=== PATIENT | male | born 1975 ===

== ENCOUNTER 2018-05-08 10:47 | Emergency (ER) | payer OTHER ==
[2018-05-08 11:05] VITALS: BP 149/94; PULSE 93; RESP 20; TEMP 99.1; O2SAT 95
--- NOTE | 2018-05-08 12:47 | C.PDOC ---
History Of Present Illness 42 year old male presents to the ED for evaluation of right ankle pain which began around 5 days ago. Patient states he was playing outside with his son, when he accidentally tripped and fell and injured his right posterior ankle. Patient has been able to walk. Today, patient noted a lump to his lower calf area and presents to the ED for further evaluation. He denies chest pain, shortness of breath, nausea, vomiting. Time Seen by Provider: 05/08/18 11:15 Chief Complaint (Nursing): Lower Extremity Problem/Injury History Per: Patient History/Exam Limitations: no limitations Onset/Duration Of Symptoms: Hrs Current Symptoms Are (Timing): Still Present Additional History Per: Patient Past Medical History Reviewed: Historical Data, Nursing Documentation, Vital Signs Vital Signs: Last Vital Signs Temp 99.1 F 05/08/18 10:56 Pulse 93 H 05/08/18 10:56 Resp 20 05/08/18 10:56 BP 149/94 H 05/08/18 10:56 Pulse Ox 95 05/08/18 10:56 - Medical History PMH: No Chronic Diseases Surgical History: No Surg Hx Family History: States: Unknown Family Hx - Social History Hx Alcohol Use: Yes Hx Substance Use: No - Immunization History Hx Tetanus Toxoid Vaccination: No Hx Influenza Vaccination: No Hx Pneumococcal Vaccination: No Review Of Systems Cardiovascular: Negative for: Chest Pain Respiratory: Negative for: Shortness of Breath Musculoskeletal: Positive for: Other (right posterior ankle injury ) Physical Exam - Physical Exam Appears: Non-toxic, No Acute Distress Skin: Normal Color, Warm, Dry Head: Atraumatic, Normacephalic Eye(s): bilateral: Normal Inspection Oral Mucosa: Moist Neck: Supple Extremity: Normal ROM (right ankle, dorsiflexion and plantar flexion intact ), No Tenderness (to right medial or lateral malleolus ), No Calf Tenderness, Capillary Refill (less than 2 seconds ), Swelling (to right achilles tendon, well-circumscribed swelling to right distal posterior calf ), No Other (ecchymosis, increased warmth or ecchymosis. Negative nixon's test ) Pulses: Left Dorsalis Pedis: Normal, Right Dorsalis Pedis: Normal Neurological/Psych: Oriented x3, Normal Speech, Normal Cognition ED Course And Treatment O2 Sat by Pulse Oximetry: 95 (on RA) Pulse Ox Interpretation: Normal - Other Rad right ankle XR X-Ray: Viewed By Me Interpretation: Date of service: 05/08/2018. PROCEDURE: Right Ankle Radiographs. HISTORY: injury. COMPARISON: No prior. FINDINGS: BONES: No evidence of acute displaced fracture nor dislocation. JOINTS: Normal. No osteoarthritis. Ankle mortise maintained. Talar dome intact. SOFT TISSUES: There is marked elliptical shaped thickening -enlargement of the Achilles tendon which suggest Achilles injury such as a partial with hematoma. Clinical correlation physical exam recommended. Recommend follow-up MRI for further evaluation. OTHER FINDINGS: None. IMPRESSION: No evidence of acute displaced fracture nor dislocation. Marked elliptical shaped enlargement/thickening of the Achilles tendon; findings suggest Achilles injury such as a partial tear of with hematoma formation.. Recommend follow-up MRI for further evaluation and clinical correlation with physical exam. These findings discussed with the emergency room JAYSON Trent at approximately 12:45 p.m. with written down and read back verification. Medical Decision Making Medical Decision Making: Progress: Right ankle XR and Venous duplex scan right lower extremity ordered. Venous duplex scan results are unremarkable. Ankle XR w/possible achilles tendon tear. Results d/w patient. Posterior short leg splint applied by EMT. Patient provided w/crutches w/training. He is stable for d/c home. He is to f/u w/the clinic and ortho and RTED for new, worsening or concerning symptoms. He verbalized understanding of his d'/c instructions and was given the opportunity to ask questions. Disposition Counseled Patient/Family Regarding: Studies Performed, Diagnosis, Need For Followup - Disposition Referrals: [facility] [Outside] [facility] [Outside] Disposition: HOME/ ROUTINE Disposition Time: 14:16 Condition: GOOD Additional Instructions: NIKKI ELIZABETH, thank you for letting us take care of you today. Your provider was Rosalinda Trent MD and you were treated for LEG PAIN. The emergency medical care you received today was directed at your acute symptoms. If you were prescribed any medication, please fill it and take as directed. It may take several days for your symptoms to resolve. Return to the Emergency Department if your symptoms worsen, do not improve, or if you have any other problems. Please call one of the physicians/clinics you have been referred to that are listed on the Patient Visit Information form that is included in your discharge packet. Bring any paperwork you were given at discharge with you along with any medications you are taking to your follow up visit. Our treatment cannot replace ongoing medical care by a primary care provider outside of the emergency department. Thank you for allowing the [facility] team to be part of your care today. If you had an X-Ray or CT scan: A Radiologist will review the ED reading if any change in treatment is needed we will contact you. If you had a blood, urine, or wound culture: It will take several days for the results, if any change in treatment is needed we will contact you. If you had an STI test: It will take 48 hours for the results. Please call after 1 week if you have not heard back. Prescriptions: Ibuprofen [Motrin Tab] 800 mg PO TID PRN #30 tab PRN Reason: Pain, Moderate (4-7) Instructions: Achilles Tendinopathy (DC) Forms: [employer] (Belarusian), General Discharge Instructions Print Language: NEPALESE - POA Present On Arrival: None - Clinical Impression Clinical Impression: Achilles tendon injury - Scribe Statement The provider has reviewed the documentation as recorded by the Scribe (Alexandra Castaneda) Provider Attestation: All medical record entries made by the Scribe were at my direction and personally dictated by me. I have reviewed the chart and agree that the record accurately reflects my personal performance of the history, physical exam, medical decision making, and the department course for this patient. I have also personally directed, reviewed, and agree with the discharge instructions and disposition.
--- NOTE | 2018-05-08 12:52 | RAD ---
Date of service: 05/08/2018 PROCEDURE: Right Ankle Radiographs. HISTORY: injury COMPARISON: No prior FINDINGS: BONES: No evidence of acute displaced fracture nor dislocation. JOINTS: Normal. No osteoarthritis. Ankle mortise maintained. Talar dome intact SOFT TISSUES: There is marked elliptical shaped thickening -enlargement of the Achilles tendon which suggest Achilles injury such as a partial with hematoma. Clinical correlation physical exam recommended. Recommend follow-up MRI for further evaluation. OTHER FINDINGS: None. IMPRESSION: No evidence of acute displaced fracture nor dislocation. Marked elliptical shaped enlargement/thickening of the Achilles tendon; findings suggest Achilles injury such as a partial tear of with hematoma formation.. Recommend follow-up MRI for further evaluation and clinical correlation with physical exam These findings discussed with the emergency room JAYSON Trent at approximately 12:45 p.m. with written down and read back verification.
--- NOTE | 2018-05-11 09:52 | VASCLAB ---
Date of service: 05/08/2018 PROCEDURE: Right Lower Extremity Venous Duplex Exam. HISTORY: swelling/injury PRIORS: None. TECHNIQUE: Right common femoral, femoral, popliteal and posterior tibial, peroneal and great saphenous veins were evaluated. Flow was assessed with color Doppler, compressibility, assessment of phasic flow and augmentation response. Report prepared by LULU Weathers FINDINGS: RIGHT: 1. Common Femoral Vein: 1.1. Compressibility - Fully compressible: Thrombus - None: Flow - Phasic: Augmentation -Normal: Reflux - None. 2. Femoral Vein: 2.1. Compressibility - Fully compressible: Thrombus - None: Flow - Phasic: Augmentation -Normal: Reflux - None. 3. Popliteal Vein: 3.1. Compressibility - Fully compressible: Thrombus - None: Flow - Phasic: Augmentation -Normal: Reflux - None. 4. Posterior Tibial Vein: 4.1. Compressibility - Fully compressible: Thrombus - None: Flow - Phasic: Augmentation -Normal: Reflux - None. 5. Peroneal Vein: 5.1. Compressibility - Fully compressible: Thrombus - None: Flow - Phasic: Augmentation -Normal: Reflux - None. 6. Great Saphenous Vein: 6.1. Compressibility - Fully compressible: Thrombus -None: Flow - Phasic: Augmentation - Normal: Reflux - None. OTHER FINDINGS: IMPRESSION: No evidence of deep or superficial vein thrombosis of the right lower extremity with excellent venous flow. Normal valve function noted of the right side. Normal venous flow noted in the left common femoral vein.
== END 2018-05-08 14:25 | disposition home or self-care (01) ==
LOC: MERGE 10:47 → C.ER 10:47
DX: S86.001A Unspecified injury of right Achilles tendon, initial encounter (principal); W01.0XXA Fall on same level from slipping, tripping and stumbling without subsequent striking against object, initial encounter; Y92.89 Other specified places as the place of occurrence of the external cause

== ENCOUNTER 2018-05-19 16:00 | Outpatient (CLI) | payer OTHER | END 2018-05-19 16:01 | disposition home or self-care (01) | LOC: C.MRIC 16:00 | DX: S86.001A Unspecified injury of right Achilles tendon, initial encounter (principal) ==

== ENCOUNTER 2018-06-01 07:54 | Day surgery (SDC) | payer OTHER ==
[2018-05-29 15:16] VITALS: BMI 27.0
[2018-06-01] MEDS ORDERED: Midazolam 2 MG/2 ML VIAL ONE (10:02)
[2018-06-01] MEDS ORDERED: Propofol 10 mg/ml Inj (20 ML) ONE (10:03)
[2018-06-01] MEDS ORDERED: Lidocaine Hydrochloride 10 ML INJ ONE (10:03)
[2018-06-01] MEDS ORDERED: ceFAZolin 1 gm in NS 1 GM/100 ML BAG IVPB ONE (10:03)
[2018-06-01] MEDS ORDERED: Bupivacaine 0.25% 20 ML INJ IJ ONE ×2 (10:03→10:05)
[2018-06-01] MEDS ORDERED: ceFAZolin 1 gm in NS 2 GM/200 ML BAG IVPB ONE (10:05)
[2018-06-01] MEDS ORDERED: Lidocaine Hydrochloride 0 ML INJ ONE (10:06)
[2018-06-01] MEDS ORDERED: Rocuronium 10 mg/ml (5 ml) ONE (10:38)
[2018-06-01] MEDS ORDERED: Lidocaine Hydrochloride 5 ML INJ ONE (10:38)
[2018-06-01] MEDS ORDERED: Neostigmine 1:1000 (1 mg/ml) Inj ONE (12:46)
--- NOTE | 2018-06-01 13:16 | PCM.SURG1 ---
Surgeon's Initial Post Op Note - Surgeon's Notes Surgeon: Dr. Carmella Montanez [place] Cleaner: Nancy Brothers PGY-2, Frantz Waller PGY-2, Alex Castaneda PGY-2 Type of Anesthesia: General Endo, Block Regional Anesthesia Administered By: Amy IGLLILAND/Hussain AVELAR Pre-Operative Diagnosis: 1) right Achilles tendon rupture. 2) right lower extremity ankle equinus deformity Operative Findings: I: none. M: #0 Fiberwire, #2 Fiberwire, Arthroflex graft, 2-0 Vicryl, 3-0 Vicryl, 3-0 Prolene, xeroform, ABD, DSD, gravity splint Post-Operative Diagnosis: same Operation Performed: 1) right Achilles tendon repair. 2) right open gastrocnemius recession Specimen/Specimens Removed: Achilles tendon right Estimated Blood Loss: EBL {In ML}: 40 Blood Products Given: N/A Drains Used: No Drains Post-Op Condition: Good Date of Surgery/Procedure: 06/01/18 Time of Surgery/Procedure: 13:16
[2018-06-01] MEDS ORDERED: Oxycodone/Acetaminophen 5/325 mg Tab PO PRN ×2 (13:17)
[2018-06-01] MEDS ORDERED: Lactated Ringer's 1,000 ML IV ONE (13:18)
[2018-06-01] MEDS: HYDROmorphone 0.5 mg/0.5 ml ISec IVP PRN ×3 (13:29→13:50)
[2018-06-01] MEDS ORDERED: Ropivacaine 0.5% PF (20 ml) inj INJ ONE (13:37)
--- NOTE | 2018-06-01 13:52 | PCM.ANESB2 ---
Popliteal Nerve Block - Popliteal Nerve Block Date of Procedure: 06/01/18 Anesthesiologist: connie Procedure Performed: Popliteal Nerve Block Right - Procedure Popliteal Nerve Block: This procedure was explained to the patient that it is for post-operative pain management. Consent was obtained after a thorough discussion with the patient regarding the benefits and possible complications of local anesthetic block of the sciatic nerve at the popliteal level. The patient was brought to the operating room and standard monitors are applied. Time-out was held with the circulating nurse to confirm the correct surgery and the appropriate block. After applying oxygen by nasal cannula and administering IV Sedation, patient's operative leg was gently raised and supported and the groove in between the biceps femoris and vastus lateralis muscles was carefully palpated. The skin approximately 8cm above the popliteal crease was then marked. The ultrasound transducer was then applied to the posterior thigh approximately 8cm above the popliteal crease in the transverse plane and the sciatic nerve before its division was visualized lateral to the popliteal artery and in between the bicep femoris and semimembranosus/semitendinosus muscles. After identification, the lateral portion of the thigh was prepped with Betadine solution three times and Lidocaine 1% was injected subcutaneously for topical anesthesia. At this point, a # 21 gauge Stimuplex insulated 4 inch needle was inserted into pre-marked area and advanced in a perpendicular direction. The needle was inserted above the ultrasound transducer in-plane towards the sciatic nerve in a [id number] direction. Needle advancement was performed carefully under direct ultrasound visualization. After repeated negative aspiration, __5___cc of ___.5__ % ropivicaine was injected and this was flowed with ___15___ cc of __.5____% ___ropiviciane . Under ultrasound guidance the local anesthetics were observed surrounding sciatic nerve . The needle was removed intact and sterile dressing was applied. The patient tolerated the popliteal nerve block well with stable vital signs and was subsequently prepared for the surgery.
[2018-06-01 16:02] VITALS: O2SAT 99
[2018-06-01 18:46] VITALS: PULSE 95; RESP 20
[2018-06-01 21:44] VITALS: BP 132/81; TEMP 99.2
--- NOTE | 2018-06-01 23:16 | PCM.OP ---
Operative Report - Operative Report Date of Surgery/Procedure: 06/01/18 Time of Surgery/Procedure: 23:16 Surgeon: Dr. Carmella Montanez DPM Claim Taker: Nancy Brothers PGY-2, Frantz Waller PGY-2, Alex Castaneda PGY-2 Anesthesia/Sedation: General endotracheal anesthesia with regional (popliteal) nerve block to left lower extremity Amy GILLILAND/Dr. Jerome AVELAR Pre-Operative Diagnosis: 1) right Achilles tendon rupture 2) right ankle equinus deformity Post-Operative Diagnosis: same Indication for Surgery: The patient is a 42 year-old male with the above-mentioned diagnosis. The patient has exhausted conservative treatment at this time and now requires surgical intervention. The patient was consented after careful explanation of risks, benefits, complications and alternatives for the surgical procedure. No guarantees were given nor implied. NPO status was confirmed prior to taking the patient into the operating room. Operative Findings: Preparation: The patient was brought into the operating room and placed on the operating room table in the supine position. A time-out was preformed for identification of the correct patient and procedure. After induction of general endotracheal anesthesia, the patient was then carefully flipped into a prone position with padded support provided on the operating room table. An pneumatic thigh tourniquet was applied to the patient's right thigh in the suprapatellar position. The right lower extremity was prepped and draped in a the normal sterile manner and the procedure began. Procedure/Operation Description: Procedure #1: Debridement of Achilles tendon with end-to-end tendon repair Attention was directed to the distal portion of the Achilles tendon of the right lower extremity. A palpable dell was noted in the tendon approximately 7-8cm proximal to the tendon insertion. Using a sterile #15 blade, an approximately 15 cm linear longitudinal incision was made overlying the posterior Achilles tendon involving the palpable dell noted in the body of the tendon. The incision was carried down through subcutaneous tissue using sharp and blunt dissection. Care was taken to retract all vital neurovascular structures. A linear incision was then made through the paratenon. Using sterile forceps and tenotomy scissors, the paratenon was carefully from the body of the tendon, keeping it intact along the entirety of the incision length. At this time, a defect was noted in the body of the Achilles tendon, approximately 9cm proximal to the calcaneal insertion. Tendon ends at this level were noted to be inflamed and frayed. Approximately a 3.5cm length portion of the tendon was resected at this time from the intrasubstance of the Achilles tendon as it was noted to lack tendinous striations and exhibit scar tissue and fibrous adhesions. The plantaris tendon was noted to be healthy in appearance and was preserved to aid in tendon repair. It is at this time that it was deemed necessary to perform a gastrocnemius recession to obtain adequate length. Procedure #2: Open gastrocnemius recession At this time, the surgical incision was lengthened an additional 12 cm proximally to allow access to the gastrocnemius aponeurosis. At this time, the gastrocnemius aponeurosis was from the underlying soleal muscle belly. Using a sterile 15 blade, the gastrocnemius aponeurosis was incised in a transverse linear fashion. At this time, a malleable retractor was then used to lengthen the Achilles tendon to allow for end-to-end tendon repair under decreased tension. The gastrocnemius recession was noted to allow tendon ends to reapproximate under low tension. Attention was then re-directed to the proximal portion of the incision to the site of the Achilles tendon defect. Arthrex 0 Fiberwire and #2 Fiberwire was then inserted in a Krackow stitch fashion through the distal and proximal ends of the tendon. The ends were then securely tied down with five secure knots tied both medially and laterally. Procedure #3: Application of biological graft Next, an Arthroflex 4x7cm decellularized dermal graft was prepared on the back table by saturating the graft in saline. The graft was then applied to the site of the tendon reapposition and wrapped around the entirety of the tendon. Using 3-0 Vicryl sutures, the graft was tacked down to the circumference of the tendon. The surgical site was then copiously irrigated with Irrisept cleaning solution. Paratenon was reapproximated with 2-0 and 3-0 Vicryl sutures. Subcutaneous tissues were reapproximated with 3-0 Vicryl suture. Skin was closed with 3-0 Prolene in a simple suture technique. Postoperative bandages included xeroform, 4x4 gauze, abdominal pads, Kerlix, Webril, and a gravity posterior splint with overlying JARRET bandages. Estimated Blood Loss: 40 mL Complications: None Specimen: right Achilles tendon Discharge & Condition: The patient tolerated the procedure well and was escorted to the recovery room with vital signs stable and neurovascular structures intact to the right lower extremity. The patient is to remain non-weightbearing at this time with use of crutches. Patient will follow up in [facility] podiatry clinic in 2 weeks. He is to remain in posterior gravity splint to right lower extremity.
== END 2018-06-01 21:15 | disposition home or self-care (01) ==
LOC: C.SDS 07:54
PROVIDERS: ATTEND Podiatrist Foot & Ankle Surgery
DX: S86.001A Unspecified injury of right Achilles tendon, initial encounter (principal)
CPT/HCPCS: 27650; 27687; 88304; J0690; J1100; J1170; J2250; J2704; J2710; J3010; J7120; Q4125

== ENCOUNTER 2018-08-24 01:21 | Emergency (ER) | payer OTHER ==
[2018-08-24 01:21] VITALS: BMI 27.0
[2018-08-24 01:27] VITALS: RESP 16
[2018-08-24] MEDS ORDERED: Sodium Chloride 0.9% 1,000 ML IV ONE ×3 (01:37→03:58)
--- NOTE | 2018-08-24 01:37 | C.PDOC ---
History Of Present Illness patient drank " a lot of" alcohol yesterday. 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 Pt is hyperventilating. No f/c. No cp or palpitations Time Seen by Provider: 08/24/18 01:36 Chief Complaint (Nursing): Medical Clearance History Per: Family History/Exam Limitations: no limitations Onset/Duration Of Symptoms: Hrs Current Symptoms Are (Timing): Still Present Severity: Moderate Pain Scale Rating Of: 5 Recent travel outside of the [place]: No Additional History Per: Family Past Medical History Reviewed: Historical Data, Nursing Documentation, Vital Signs Vital Signs: Last Vital Signs Temp 98.6 F 08/24/18 01:26 Pulse 95 H 08/24/18 01:26 Resp 16 08/24/18 01:26 BP 122/77 08/24/18 01:26 Pulse Ox 100 08/24/18 01:26 Family History: States: No Known Family Hx - Social History Hx Alcohol Use: Yes Hx Substance Use: No - Immunization History Hx Tetanus Toxoid Vaccination: No Hx Influenza Vaccination: No Hx Pneumococcal Vaccination: No Review Of Systems Constitutional: Negative for: Fever, Chills Cardiovascular: Negative for: Chest Pain Respiratory: Negative for: Shortness of Breath Gastrointestinal: Positive for: Nausea, Vomiting. Negative for: Abdominal Pain Genitourinary: Negative for: Hematuria Musculoskeletal: Negative for: Back Pain Skin: Negative for: Rash Neurological: Negative for: Weakness Psych: Positive for: Anxiety Physical Exam - Physical Exam Appears: Non-toxic Skin: Warm, Dry Head: Normacephalic Eye(s): bilateral: Normal Inspection Oral Mucosa: Dry Neck: Supple Chest: Symmetrical Cardiovascular: Rhythm Regular Respiratory: No Rales, No Rhonchi, No Wheezing, Other (hyperventilating) Gastrointestinal/Abdominal: Soft, No Tenderness, No Distention Back: No CVA Tenderness Extremity: Other (carpal spaspms bilateral) Extremity: Bilateral: Atraumatic Pulses: Left Dorsalis Pedis: Normal, Right Dorsalis Pedis: Normal Neurological/Psych: Oriented x3 Gait: Unable To Assess ED Course And Treatment - Laboratory Results Result Diagrams: 08/24/18 01:51 08/24/18 01:51 ECG: Interpreted By Me, Viewed By Me ECG Rhythm: Sinus Rhythm (88), Nonspecific Changes O2 Sat by Pulse Oximetry: 100 Pulse Ox Interpretation: Normal - Radiology CXR: Interpreted by Me, Viewed By Me CXR Interpretation: No: Infiltrates, Fracture, Pnemothorax Reevaluation Time: 06:24 Reassessment Condition: Improved Medical Decision Making Medical Decision Making: Upon provider reevaluation patient is feeling better, is medically stable, and requires no further treatment in the ED at this time. Patient will be discharged home . Counseling was provided and all questions were answered regarding diagnosis and need for follow up with the referred clinic. There is agreement to discharge plan. Return if symptoms persist or worsen. Disposition Counseled Patient/Family Regarding: Studies Performed, Diagnosis, Need For Followup - Disposition Referrals: [facility] [Outside] [facility] [Outside] Disposition: HOME/ ROUTINE Disposition Time: 01:37 Condition: FAIR Additional Instructions: Please return if symptoms recur Instructions: Hyperventilation, Low Magnesium Level (DC) Forms: [employer] (Chadian) Print Language: ROMANIAN - Clinical Impression Clinical Impression: Hyperventilating, Carpopedal spasm, Hypomagnesemia, Hypophosphatemia
[2018-08-24 01:55] LABS: BASO # 0.1 K/uL (0.0-0.2); BASO % 0.5 % (0.0-2.0); EOS % 0.4 % (0.0-4.0); LYMPH # 2.8 K/uL (1.0-4.3); LYMPH % 24.5 % (20.0-40.0); MEAN CELL VOLUME 81.6 fL (80.0-94.0); MEAN CORPUSCULAR HEMOGLOBIN 27.1 pg (27.0-31.0); MEAN CORPUSCULAR HGB CONC 33.2 g/dL (33.0-37.0); MEAN PLATELET VOLUME 7.7 fL (7.2-11.7); MONO # 0.5 K/uL (0.0-0.8); MONO % 4.3 % (0.0-10.0); NEUT # 8.2 K/uL (1.8-7.0); NEUT % 70.3 % (50.0-75.0); RBC 5.51 Mil/uL (4.40-5.90); RED CELL DISTRIBUTION WIDTH 13.3 % (11.5-14.5); WHITE BLOOD COUNT 11.6 K/uL (4.8-10.8)
[2018-08-24 02:06] LABS: ALB/GLOB RATIO 1.9 (1.0-2.1); ALBUMIN 5.1 g/dL (3.5-5.0); ALT/SGPT 63 U/L (21-72); AST/SGOT 40 U/L (17-59); BLOOD UREA NITROGEN 11 mg/dL (9-20); CALCIUM 9.4 mg/dl (8.6-10.4); GFR NON-AFRICAN AMERICAN > 60
[2018-08-24] MEDS ORDERED: Magnesium Sulfate 1 gm in D5W 1 GM/100 ML BAG IVPB ONE ×3 (02:10→02:41)
[2018-08-24] MEDS ORDERED: Potassium & Sodium Phosphate PO STA (02:12)
[2018-08-24] MEDS: Magnesium Sulfate 1 gm in D5W 1 GM/100 ML BAG IVPB SCH ×2 (02:13→02:40)
[2018-08-24 02:29] LABS: VENOUS BLOOD GAS BASE EXCESS -0.9 mmol/L (0.0-2.0); VENOUS BLOOD GAS PCO2 28 mmHg (40-60); VENOUS BLOOD GAS PO2 37 mm/Hg (30-55); VENOUS BLOOD PH 7.49 (7.32-7.43)
[2018-08-24] MEDS ORDERED: diaZEpam 10 mg/2 ml Inj IVP ONE ×2 (02:38→03:08)
[2018-08-24] MEDS ORDERED: Sodium Chloride 0.9% 1,000 ML ONE (02:39)
[2018-08-24] MEDS ORDERED: diaZEpam 10 mg/2 ml Inj ONE (02:46)
[2018-08-24 05:32] LABS: VENOUS BLOOD GAS BASE EXCESS -3.4 mmol/L (0.0-2.0); VENOUS BLOOD GAS PCO2 37 mmHg (40-60); VENOUS BLOOD GAS PO2 46 mm/Hg (30-55); VENOUS BLOOD PH 7.37 (7.32-7.43)
[2018-08-24 06:32] VITALS: BP 115/67; PULSE 70; TEMP 98.7; O2SAT 98
--- NOTE | 2018-08-24 09:01 | RAD ---
Chest x-ray single frontal view History: Nausea and vomiting. Comparison: 05/26/2018 Findings: No focal infiltrate or effusion. Heart size was within normal limits. Degenerative changes in the spine with paravertebral osteophytes. Impression: No focal infiltrate or effusion. Heart size was within normal limits.
--- NOTE | 2018-08-25 12:48 | CARD ---
APPROVED REPORT Date of service: 08/24/2018 EKG Measurement Heart [id number] <Conclusion> Sinus rhythm with short IL with occasional premature ventricular complexes Right axis deviation Abnormal ECG
== END 2018-08-24 06:43 | disposition home or self-care (01) ==
LOC: C.ER 01:21
DX: R06.4 Hyperventilation (principal); E83.42 Hypomagnesemia; E83.39 Other disorders of phosphorus metabolism; R29.0 Tetany
CPT/HCPCS: 71045; 80053; 80320; 82803; 83735; 84100; 85025; 93005; 96361; 96365; 96366; 96375; 99285; J1885; J3360; J3475; J7030